=== PATIENT | female | born 1985 | race Caucasian/White ===

== ENCOUNTER 2024-09-02 19:44 | Emergency (ER) | payer SELFPAY ==
[~2024-09-02 19:44] MED LIST: CIPRODEX 0.3%-7.5 ML OT; CLARITIN10 MG PO; DOXYCYCLINE MO100 MG PO; TRAMADOL HCL50 MG PO; ZITHROMAX Z PA250 MG PO
[2024-09-02 19:59] VITALS: BP 111/68
[2024-09-02] MEDS ORDERED: LEVOFLOXACIN 750 MG TAB PO ONE (21:10)
[2024-09-02] MEDS ORDERED: methylPREDNISolone sod succ 125 MG VIAL IM ONE (21:10)
[2024-09-02] MEDS ORDERED: PREDNISONE20 M1 PO (21:16)
[2024-09-02] MEDS ORDERED: LEVOFLOXACIN750 M2 PO (21:16)
== END 2024-09-02 21:30 | disposition home or self-care (01) ==
LOC: ED 19:44
DX: J18.9 Pneumonia, unspecified organism (principal); Z88.0 Allergy status to penicillin

== ENCOUNTER 2024-09-28 21:13 | Emergency (ER) | payer OTHER ==
[~2024-09-28] VITALS: Ht 167.6 cm; Wt 103.4 kg
[~2024-09-28 21:13] MED LIST changes: +LEVOFLOXACIN750 M2 PO; +PREDNISONE20 M1 PO
[2024-09-28 21:26] VITALS: BP 120/62
[2024-09-28] MEDS ORDERED: methylPREDNISolone sod succ 125 MG VIAL IM ONE (21:30)
[2024-09-28 21:44] LABS: BASO % 0.5 % (0.0-1.0); EOS # 0.3 10*3/uL (0.0-0.4); EOS % 4.1 % (1.0-4.0); HEMATOCRIT 43.1 % (37.0-47.0); MEAN CELL VOLUME 93.9 fl (81.0-99.0); MEAN CORPUSCULAR HGB 30.9 pg (27.0-31.0); MEAN CORPUSCULAR HGB CONC 32.9 g/dl (33.0-37.0); MONO # 0.6 10*3/uL (0.1-1.0); MONO % 7.2 % (3.0-9.0); NEUT # 4.5 10*3/uL (2.3-7.9); NEUT % 54.3 % (47.0-73.0); PLATELET COUNT AUTOMATED 229 10*3/uL (130-400); RED BLOOD COUNT 4.59 10*6/uL (4.10-5.10); RED CELL DISTRI WIDTH 12.4 % (0-14.5); WHITE BLOOD COUNT 8.3 10*3/uL (4.8-10.8)
[2024-09-28 22:03] LABS: BUN 13 mg/dl (9-23); CHLORIDE 104 mmol/L (98-107); POTASSIUM 4.2 mmol/L (3.4-5.1)
[2024-09-28] MEDS ORDERED: MEDROL DOSEPAK4 MG PO (22:46)
== END 2024-09-28 22:50 | disposition home or self-care (01) ==
LOC: ED 21:13
PROVIDERS: Physician Assistant Medical
DX: J20.9 Acute bronchitis, unspecified (principal); G43.909 Migraine, unspecified, not intractable, without status migrainosus; F17.290 Nicotine dependence, other tobacco product, uncomplicated; Z88.0 Allergy status to penicillin; Z91.040 Latex allergy status

== ENCOUNTER 2025-03-15 16:46 | Emergency (ER) | payer OTHER ==
[~2025-03-15] VITALS: Wt 90.7 kg
[~2025-03-15 16:46] MED LIST changes: +MEDROL DOSEPAK4 MG PO
[2025-03-15] MEDS ORDERED: Ketorolac Tromethamine 30 MG/ML VIAL IM ONE (17:05)
[2025-03-15] MEDS ORDERED: methylPREDNISolone acetate 40 MG/ML VIAL IM ONE (17:05)
[2025-03-15] MEDS ORDERED: Acetaminophen/Hydrocodone 5 MG/325 MG TABLET PO ONE (18:25)
[2025-03-15] MEDS ORDERED: ZANAFLEX4 MG PO (18:27)
[2025-03-15] MEDS ORDERED: NAPROSYN500 MG PO (18:27)
[2025-03-15] MEDS ORDERED: MEDROL DOSEPAK4 MG PO (18:27)
== END 2025-03-15 19:09 | disposition home or self-care (01) ==
LOC: ED 16:46
DX: M77.12 Lateral epicondylitis, left elbow (principal); Z88.0 Allergy status to penicillin; Z79.899 Other long term (current) drug therapy; Z90.711 Acquired absence of uterus with remaining cervical stump

== ENCOUNTER 2025-06-15 20:08 | Emergency (ER) | payer OTHER ==
[~2025-06-15] VITALS: Ht 167.6 cm; Wt 104.3 kg
[~2025-06-15 20:08] MED LIST changes: +NAPROSYN500 MG PO; +ZANAFLEX4 MG PO
[2025-06-15 20:29] VITALS: BP 123/58
[2025-06-15] MEDS ORDERED: PREDNISONE20 M1 PO (20:58)
[2025-06-15] MEDS ORDERED: Acetaminophen/Oxycodone 5 MG/325 MG TABLET PO ONE (21:00)
== END 2025-06-15 21:10 | disposition home or self-care (01) ==
LOC: ED 20:08
DX: G89.29 Other chronic pain (principal); M54.41 Lumbago with sciatica, right side; E11.9 Type 2 diabetes mellitus without complications; Z88.0 Allergy status to penicillin; Z90.710 Acquired absence of both cervix and uterus

== ENCOUNTER 2025-08-01 20:05 | Emergency (ER) | payer OTHER ==
[~2025-08-01] VITALS: Ht 170.1 cm; Wt 102.1 kg
[2025-08-01 20:15] VITALS: BP 123/56
[2025-08-01] MEDS ORDERED: ZITHROMAX250 MG PO (21:15)
== END 2025-08-01 21:39 | disposition home or self-care (01) ==
LOC: ED 20:05
DX: J40 Bronchitis, not specified as acute or chronic (principal); Z88.0 Allergy status to penicillin; Z79.899 Other long term (current) drug therapy; Z90.710 Acquired absence of both cervix and uterus

== ENCOUNTER 2025-08-09 11:03 | Emergency (ER) | payer OTHER ==
[~2025-08-09] VITALS: Ht 167.6 cm; Wt 102.1 kg
[~2025-08-09 11:03] MED LIST changes: +ZITHROMAX250 MG PO
[2025-08-09 11:12] VITALS: BP 116/62
[2025-08-09 12:38] LABS: MEAN CELL VOLUME 93.0 fl (81.0-99.0); MEAN CORPUSCULAR HGB 31.1 pg (27.0-31.0); MEAN PLATELET VOLUME 11.2 fl (9.6-12.3); NUCLEATED RED BLOOD CELL 0.0 % (0.0-0.0); NUCLEATED RED BLOOD CELL 0.0 10*3/uL (0.0-0.0); PLATELET COUNT AUTOMATED 224 10*3/uL (130-400); RED CELL DISTRI WIDTH 12.4 % (0-14.5)
[2025-08-09 12:40] LABS: MANUAL DIFF REFLEX YES
[2025-08-09] MEDS ORDERED: diphenhydrAMINE hydrochloride 50 MG/ML VIAL IV ONE (12:40)
[2025-08-09] MEDS ORDERED: Metoclopramide Hydrochloride 10 MG/2 ML VIAL IV ONE (12:40)
[2025-08-09] MEDS ORDERED: Lactated Ringer's Solution 1,000 ML IV SCH (12:45)
[2025-08-09 13:06] LABS: BUN 14 mg/dl (9-23); SGPT/ALT 18 U/L (5-49)
[2025-08-09 13:08] LABS: PLATELET SUFFICIENCY NORMAL (NORMAL)
[2025-08-09] MEDS ORDERED: Lactated Ringer's Solution 1,000 ML IV ONE (13:19)
[2025-08-09] MEDS ORDERED: NAPROSYN500 MG PO (16:29)
== END 2025-08-09 16:34 | disposition home or self-care (01) ==
LOC: ED 11:03
DX: G43.909 Migraine, unspecified, not intractable, without status migrainosus (principal); R42 Dizziness and giddiness; R10.9 Unspecified abdominal pain; E11.9 Type 2 diabetes mellitus without complications; F41.9 Anxiety disorder, unspecified; E78.00 Pure hypercholesterolemia, unspecified; F31.9 Bipolar disorder, unspecified; Z90.710 Acquired absence of both cervix and uterus; Z88.0 Allergy status to penicillin; Z88.8 Allergy status to other drugs, medicaments and biological substances

== ENCOUNTER 2025-09-24 04:44 | Emergency (ER) | payer OTHER ==
[~2025-09-24] VITALS: Ht 170.1 cm; Wt 104.3 kg
[2025-09-24 06:17] LABS: BASO # 0.0 10*3/uL (0.0-0.1); BASO % 0.5 % (0.0-1.0); EOS # 0.3 10*3/uL (0.0-0.4); EOS % 3.7 % (1.0-4.0); MEAN CELL VOLUME 93.0 fl (81.0-99.0); MEAN CORPUSCULAR HGB 31.1 pg (27.0-31.0); MEAN PLATELET VOLUME 11.4 fl (9.6-12.3); MONO # 0.6 10*3/uL (0.1-1.0); MONO % 7.1 % (3.0-9.0); NEUT # 4.4 10*3/uL (2.3-7.9); NEUT % 52.7 % (47.0-73.0); NUCLEATED RED BLOOD CELL 0.0 % (0.0-0.0); NUCLEATED RED BLOOD CELL 0.0 10*3/uL (0.0-0.0); PLATELET COUNT AUTOMATED 171 10*3/uL (130-400); RED CELL DISTRI WIDTH 12.2 % (0-14.5)
[2025-09-24 06:22] LABS: BUN 13 mg/dl (9-23)
[2025-09-24 07:09] LABS: ACT PARTIAL THROMBO TIME 26.5 SECONDS (20.0-32.1)
[2025-09-24 07:32] VITALS: BP 126/74
== END 2025-09-24 09:00 | disposition home or self-care (01) ==
LOC: ED 04:44
PROVIDERS: Internal Medicine
DX: R07.89 Other chest pain (principal); F41.9 Anxiety disorder, unspecified; Z88.0 Allergy status to penicillin; Z79.899 Other long term (current) drug therapy; Z88.8 Allergy status to other drugs, medicaments and biological substances; Z90.710 Acquired absence of both cervix and uterus

== ENCOUNTER 2025-10-02 05:35 | Emergency (ER) | payer OTHER ==
[~2025-10-02] VITALS: Ht 170.1 cm; Wt 104.3 kg
[2025-10-02 05:45] VITALS: BP 130/70
[2025-10-02] MEDS ORDERED: BUSPIRONE HCL10 MG PO (05:47)
[2025-10-02] MEDS ORDERED: ABILIFY MAINTE400 MG IM (05:47)
[2025-10-02] MEDS ORDERED: LAMOTRIGINE25 M1 PO (05:48)
[2025-10-02 06:06] LABS: BILIRUBIN Negative (Negative); BLOOD 1+ (Negative); CLARITY Clear (Clear); COLOR Yellow (Yellow); KETONE Trace (Negative); LEUKO ESTERASE Trace (Negative); NITRITE Positive (Negative); PH 5.5 (4.5-8.0); SPECIFIC GRAVITY >= 1.030 (1.001-1.030); UROBILINOGEN 1.0 E.U./dl (0.0-1.0)
[2025-10-02 06:22] LABS: BACTERIA 2+
[2025-10-02 06:29] LABS: WBC 21-30 wbc/hpf (0-5)
[2025-10-02] MEDS ORDERED: Phenazopyridine Hydrochlorid2 100 MG TAB PO ONE (06:35)
[2025-10-02] MEDS ORDERED: Ciprofloxacin Hydrochloride 500 MG TAB PO ONE (06:35)
[2025-10-02] MEDS ORDERED: CIPRO500 MG PO (06:50)
[2025-10-02] MEDS ORDERED: PYRIDIUM100 MG PO (06:50)
== END 2025-10-02 06:56 | disposition home or self-care (01) ==
LOC: ED 05:35
PROVIDERS: Internal Medicine
DX: N39.0 Urinary tract infection, site not specified (principal); E11.9 Type 2 diabetes mellitus without complications; F41.9 Anxiety disorder, unspecified; G43.909 Migraine, unspecified, not intractable, without status migrainosus; E78.00 Pure hypercholesterolemia, unspecified; F31.9 Bipolar disorder, unspecified; Z90.710 Acquired absence of both cervix and uterus; Z88.0 Allergy status to penicillin; Z88.1 Allergy status to other antibiotic agents